=== PATIENT | male | born 1960 | race Caucasian/White ===

== ENCOUNTER 2018-06-10 14:14 | Emergency (ER) | payer OTHER ==
[2018-06-10] MEDS ORDERED: LIDOCAINE HCL MPF 1% 5ML VIAL ONE (14:53)
== END 2018-06-10 16:31 | disposition home or self-care (01) ==
LOC: EDH 14:14
DX: S62.632B Displaced fracture of distal phalanx of right middle finger, initial encounter for open fracture (principal); I10 Essential (primary) hypertension; M10.9 Gout, unspecified; Z98.890 Other specified postprocedural states; X58.XXXA Exposure to other specified factors, initial encounter; Y93.89 Activity, other specified; Y92.89 Other specified places as the place of occurrence of the external cause; Y99.8 Other external cause status
CPT/HCPCS: 12042; 73140; 99284; J3490

== ENCOUNTER 2018-06-14 13:56 | Emergency (ER) | payer OTHER | END 2018-06-14 16:12 | disposition home or self-care (01) | LOC: EDH 13:56 | DX: S61.212D Laceration without foreign body of right middle finger without damage to nail, subsequent encounter (principal); L08.9 Local infection of the skin and subcutaneous tissue, unspecified; I10 Essential (primary) hypertension; Z87.891 Personal history of nicotine dependence; X58.XXXD Exposure to other specified factors, subsequent encounter ==

== ENCOUNTER → 2018-08-17 | Outpatient (CLI) | payer OTHER ==
[~2018-08-17] MED LIST: ALLO300T2 PO; AMLO10TA7 PO; ASPI-555 PO; ICOS1CAP PO; METO-391 PO; TAMS0.4C32 PO
== END | disposition home or self-care (01) ==
LOC: SHCH 13:51
PROVIDERS: ATTEND Internal Medicine Cardiovascular Disease
DX: I10 Essential (primary) hypertension (principal); E78.5 Hyperlipidemia, unspecified
CPT/HCPCS: 93306

== ENCOUNTER → 2018-08-21 | Outpatient (CLI) | payer OTHER ==
[~2018-08-21] VITALS: Ht 175.3 cm; Wt 93.4 kg
[~2018-08-21] MED LIST changes: -ALLO300T2 PO; -AMLO10TA7 PO; -ASPI-555 PO; -ICOS1CAP PO; -METO-391 PO; +REGADENOSON 0.4 MG/5 ML PF SYG IVP SCH; -TAMS0.4C32 PO
== END | disposition home or self-care (01) ==
LOC: SHCH 07:47
PROVIDERS: ATTEND Internal Medicine Cardiovascular Disease
DX: R07.9 Chest pain, unspecified (principal); E78.5 Hyperlipidemia, unspecified; I25.9 Chronic ischemic heart disease, unspecified
CPT/HCPCS: 78452; 93017; 96374; A9500 ×2; J2785

== ENCOUNTER 2018-09-10 05:47 | Observation (INO) | payer OTHER ==
[2018-09-08 16:03] LABS: BASOPHILS % (AUTO) 0.8 % (0.0-5.0); EOSINOPHILS % (AUTO) 1.8 % (0.0-8.0); HEMATOCRIT 41.3 % (42-54); LYMPHOCYTES % (AUTO) 24.7 % (21.0-51.0); MEAN CORPUSCULAR HEMOGLOBIN 28.1 pg (27.0-33.0); MEAN CORPUSCULAR HGB CONC 33.7 g/dL (32.0-36.0); MEAN CORPUSCULAR VOLUME 83.6 fL (79-99); MONOCYTES % (AUTO) 9.1 % (3.0-13.0); NEUTROPHILS % (AUTO) 63.6 % (40.0-77.0); NUCLEATED RED BLOOD CELLS 0.1 % (0.0-0.19); PLATELET COUNT (AUTO) 235 K/uL (130-400); RED BLOOD CELL COUNT(AUTO) 4.94 MIL/uL (4.50-6.20); RED CELL DISTRIBUTION WIDTH 13.7 % (11.0-15.5); WHITE BLOOD COUNT (AUTO) 7.6 K/uL (4.8-10.8)
[2018-09-08 16:04] LABS: APPEARANCE,URINE Clear (CLEAR); BILIRUBIN,URINE Negative (NEGATIVE); COLOR,URINE Yellow (YELLOW); GLUCOSE, URINE (UA) Negative (NEGATIVE); KETONES,URINE Negative (NEGATIVE); LEUKOCYTE ESTERASE ,URINE Negative (NEGATIVE); NITRATE,URINE Negative (NEGATIVE); OCCULT BLOOD,URINE Negative (NEGATIVE); PROTEIN,URINE Negative (NEGATIVE); UROBILINOGEN,URINE 0.2 mg/dL (0.2-1.0)
[2018-09-08 16:08] VITALS: BP 144/89
[2018-09-08 16:14] LABS: POTASSIUM 3.4 mmol/L (3.5-5.1)
[2018-09-08 16:15] LABS: INR 0.92 (0.85-1.15); PROTHROMBIN TIME 9.7 SEC (9.6-11.6)
--- NOTE | 2018-09-09 12:18 | NUR ---
ABNORMAL LABS REPORTED ABNORMAL LABS TO KANIKA MCCLURE. POTASSIUM 3.4. ORDERS TO REDRAW POTASSIUM IN THE MORNING.
[2018-09-10] VITALS (19 sets, daily range): BP systolic 118–144; BP diastolic 70–97
[~2018-09-10] VITALS: Ht 177.8 cm; Wt 94.6 kg
[~2018-09-10 05:47] MED LIST changes: +ALLO300T2 PO; +AMLO10TA7 PO; +ASPI-555 PO; +ICOS1CAP PO; +METO-391 PO; -REGADENOSON 0.4 MG/5 ML PF SYG IVP SCH; +TAMS0.4C32 PO
[2018-09-10] MEDS: SODIUM CHLORIDE 0.9% 1000ML 1,000 ML IV SCH ×2 (07:12→14:50)
[2018-09-10] MEDS ORDERED: IOHEXOL-350 50ML VIAL IV ONE (08:19)
[2018-09-10] MEDS ORDERED: HEPARIN SODIUM 1000UNIT/ML 10ML VIAL ONE (08:19)
[2018-09-10] MEDS ORDERED: IOHEXOL 350 MG/ML 100ML INFUS..BTL IV ONE (08:19)
[2018-09-10] MEDS ORDERED: LIDOCAINE HCL 2% 20ML ONE (08:20)
[2018-09-10] MEDS ORDERED: CLOPIDOGREL BISULFATE 300 MG TAB ONE (09:18)
[2018-09-10] MEDS ORDERED: ONDANSETRON HCL 4 MG/2 ML VIAL IVP SCH (09:30)
[2018-09-10] MEDS ORDERED: ONDANSETRON HCL 4 MG/2 ML VIAL IVP PRN (09:30)
[2018-09-10] MEDS ORDERED: MORPHINE SULFATE 5 MG/ML VIAL IVP SCH (09:30)
[2018-09-10] MEDS ORDERED: ATROPINE SULFATE 0.1 MG/ML 10 ML SYG IVP ONE (13:54)
[2018-09-10] MEDS ORDERED: MORPHINE SULFATE 5 MG/ML VIAL ONE (13:56)
--- NOTE | 2018-09-10 15:00 | NUR ---
REPORT GIVEN TO SRAVANTHI TRAYLOR
[2018-09-10] MEDS ORDERED: ATORVASTATIN CALCIUM 10 MG TABLET PO SCH (21:00)
[2018-09-10] MEDS ORDERED: ALLOPURINOL 300 MG TABLET PO SCH (21:00)
[2018-09-10] MEDS ORDERED: TAMSULOSIN HCL 0.4 MG CAP.ER.24H PO SCH (21:00)
[2018-09-10] MEDS: METOPROLOL TARTRATE 25 MG TAB PO SCH (21:36)
[2018-09-10] MEDS: AMLODIPINE BESYLATE 5 MG TAB PO SCH (21:36)
[2018-09-11] MEDS ORDERED: ACETAMINOPHEN 325 MG TAB ONE (03:35)
[2018-09-11 03:44] VITALS: BP 118/87
[2018-09-11 07:30] VITALS: BP 133/79
--- NOTE | 2018-09-11 07:30 | NUR ---
received report assessment completed aaox4 status post stent, denies discomfort, tele sr, call light in reach , rt groin no hematoma, pulses palpable +2
--- NOTE | 2018-09-11 08:30 | NUR ---
dr mccloud in to see pt , discussed plan of care, for discharge today
[2018-09-11] MEDS: AMLODIPINE BESYLATE 5 MG TAB PO SCH (08:39)
[2018-09-11] MEDS: METOPROLOL TARTRATE 25 MG TAB PO SCH (08:42)
[2018-09-11] MEDS ORDERED: CLOPIDOGREL BISULFATE 75 MG TAB PO SCH (09:00)
[2018-09-11] MEDS ORDERED: **HM** VASCEPA 2GM PO SCH (09:00)
[2018-09-11] MEDS ORDERED: ASPIRIN 81MG TAB.CHEW PO SCH (09:00)
[2018-09-11 11:00] VITALS: BP 137/82
--- NOTE | 2018-09-11 12:30 | NUR ---
dr fleming in to see pt, ok to discharge
--- NOTE | 2018-09-11 13:00 | NUR ---
written and verbal discharge instructions given, reviewed new med plavix indication and side effects, appointment with dr mccloud, on oct 05 , teach back, saline lock and tele moises removed, dischared via w/c accompanied by
== END 2018-09-11 13:10 | disposition home or self-care (01) ==
LOC: DAH 05:47 → DAHIP 05:48 → DAH 05:48 → 4CH 17:19
PROVIDERS: ADMIT Internal Medicine; ATTEND Internal Medicine
DX: I25.119 Atherosclerotic heart disease of native coronary artery with unspecified angina pectoris (principal); E66.9 Obesity, unspecified; E78.00 Pure hypercholesterolemia, unspecified; E79.0 Hyperuricemia without signs of inflammatory arthritis and tophaceous disease; I25.82 Chronic total occlusion of coronary artery; E78.5 Hyperlipidemia, unspecified; I11.9 Hypertensive heart disease without heart failure; N40.0 Benign prostatic hyperplasia without lower urinary tract symptoms; Z79.82 Long term (current) use of aspirin; Z79.01 Long term (current) use of anticoagulants
CPT/HCPCS: 36415 ×2; 71045; 80048; 81003; 84132; 85025; 85610; 85730 ×3; 93005; 93458; 96374; A4606; C1769; C1874; C1887; C1894; C9600; G0378 ×31; J1644 ×2; J2270; J2405; J3490; J7030; Q9965 ×2; Q9967 ×2; J0461

== ENCOUNTER → 2019-08-04 | Outpatient (CLI) | payer OTHER | END | disposition home or self-care (01) | LOC: RAH 10:37 | PROVIDERS: ATTEND Family Medicine | DX: R47.81 Slurred speech (principal) | CPT/HCPCS: 70544; 70551 ==

== ENCOUNTER 2021-03-24 15:46 | Observation (INO) | payer OTHER ==
[~2021-03-24] VITALS: Ht 172.7 cm; Wt 97.5 kg
[2021-03-24] VITALS (10 sets, daily range): BP systolic 106–161; BP diastolic 68–90
[~2021-03-24 15:46] MED LIST changes: +AMLO-258 PO; -AMLO10TA7 PO; -ASPI-555 PO; +ASPI-556 PO
[2021-03-24 16:17] LABS: BASOPHILS % (AUTO) 0.5 % (0.0-5.0); EOSINOPHILS % (AUTO) 0.3 % (0.0-8.0); HEMATOCRIT 39.2 % (42-54); LYMPHOCYTES % (AUTO) 17.6 % (21.0-51.0); MEAN CORPUSCULAR HEMOGLOBIN 28.6 pg (27.0-33.0); MEAN CORPUSCULAR HGB CONC 34.7 g/dL (32.0-36.0); MEAN CORPUSCULAR VOLUME 82.5 fL (79-99); PLATELET COUNT (AUTO) 262 K/uL (130-400); RED BLOOD CELL COUNT(AUTO) 4.75 MIL/uL (4.50-6.20); RED CELL DISTRIBUTION WIDTH 13.2 % (11.0-15.5); WHITE BLOOD COUNT (AUTO) 11.3 K/uL (4.8-10.8)
[2021-03-24 16:28] LABS: CREATININE 2.1 mg/dL (0.5-1.5); POTASSIUM 3.8 mmol/L (3.5-5.1)
[2021-03-24 16:31] LABS: APPEARANCE,URINE Cloudy (CLEAR); BILIRUBIN,URINE Small (NEGATIVE); COLOR,URINE Dark Yellow (YELLOW); GLUCOSE, URINE (UA) Negative (NEGATIVE); KETONES,URINE 15 mg/dL (NEGATIVE); LEUKOCYTE ESTERASE ,URINE Trace (NEGATIVE); NITRATE,URINE Negative (NEGATIVE); OCCULT BLOOD,URINE Negative (NEGATIVE); PROTEIN,URINE POS 1+ mg/dL (NEGATIVE)
[2021-03-24 16:32] LABS: ALBUMIN 4.2 g/dL (3.5-5.0); BILIRUBIN,TOTAL 0.4 mg/dL (0.2-1.0); TOTAL PROTEIN, SERUM 7.5 g/dL (6.0-8.3)
[2021-03-24 16:48] LABS: BACTERIA,URINE Rare /HPF (None Seen); MUCUS,URINE Rare LPF (None Seen); SQUAMOUS EPITHELIAL CELL,UR 0-2 /HPF (0-2); WBC,URINE 0-1 /HPF (0-1)
[2021-03-24] MEDS ORDERED: 0.9%NACL 1000ML 1,000 ML IV ONE (19:00)
[2021-03-24] MEDS ORDERED: METOPROLOL TARTRATE 25 MG TAB PO ONE (21:30)
[2021-03-24] MEDS ORDERED: LACTULOSE 20 GM/30 ML UDCUP PO PRN (21:30)
[2021-03-24] MEDS ORDERED: HYDRALAZINE 20MG/ML VIAL IV PRN (21:30)
[2021-03-24] MEDS ORDERED: HYDROCODONE/ACETAMINOPHEN 5/325 MG TAB PO PRN (21:30)
[2021-03-24] MEDS ORDERED: GUAIFENESIN-DM 200/20 MG 10 ML PO PRN (21:30)
[2021-03-24] MEDS ORDERED: NITROGLYCERIN 0.4 MG SL TAB SL PRN (21:30)
[2021-03-24] MEDS ORDERED: ACETAMINOPHEN 325 MG TAB PO PRN ×2 (21:30)
[2021-03-24] MEDS ORDERED: MAG/ALUM/SIMETH 30 ML UDCUP PO PRN (21:30)
[2021-03-24] MEDS ORDERED: ONDANSETRON 4MG INJ IV PRN (21:30)
[2021-03-24] MEDS ORDERED: DIPHENHYDRAMINE HCL 25 MG CAPSULE PO PRN (21:30)
[2021-03-24] MEDS: 0.9%NACL 1000ML 1,000 ML IV SCH (22:19)
[2021-03-24 22:46] LABS: CREATINE KINASE, TOTAL 135 U/L (21-232); MYOGLOBIN 74 ng/mL (10-92); TROPONIN I < 0.04 ng/mL (0.00-0.06)
[2021-03-25] VITALS (9 sets, daily range): BP systolic 121–149; BP diastolic 70–87
[2021-03-25 04:41] LABS: BASOPHILS % (AUTO) 0.7 % (0.0-5.0); EOSINOPHILS % (AUTO) 1.5 % (0.0-8.0); HEMATOCRIT 36.3 % (42-54); LYMPHOCYTES % (AUTO) 38.6 % (21.0-51.0); MEAN CORPUSCULAR HEMOGLOBIN 28.4 pg (27.0-33.0); MEAN CORPUSCULAR HGB CONC 33.6 g/dL (32.0-36.0); MEAN CORPUSCULAR VOLUME 84.4 fL (79-99); MONOCYTES % (AUTO) 7.4 % (3.0-13.0); NEUTROPHILS % (AUTO) 51.5 % (40.0-77.0); PLATELET COUNT (AUTO) 241 K/uL (130-400); RED CELL DISTRIBUTION WIDTH 13.4 % (11.0-15.5); WHITE BLOOD COUNT (AUTO) 9.1 K/uL (4.8-10.8)
[2021-03-25 04:49] LABS: HEMOGLOBIN A1C 5.8 % (4.0-6.0)
[2021-03-25 05:00] LABS: B-TYPE NATRIURETIC PEPTIDE < 5 pg/mL (0-100)
[2021-03-25 05:03] LABS: CARBON DIOXIDE 28 mmol/L (21-32); CHLORIDE 109 mmol/L (101-111); CREATINE KINASE, TOTAL 126 U/L (21-232); CREATININE 1.3 mg/dL (0.5-1.5); GLOMERULAR FILTR. RATE CALC 59 mL/min (>60); GLUCOSE,RANDOM 89 mg/dL (70-105); MYOGLOBIN 61 ng/mL (10-92); POTASSIUM 3.7 mmol/L (3.5-5.1); SODIUM SERUM 144 mmol/L (136-145); TROPONIN I < 0.04 ng/mL (0.00-0.06); UREA NITROGEN, BLOOD 20 mg/dL (7-18)
[2021-03-25] MEDS: 0.9%NACL 1000ML 1,000 ML IV SCH ×2 (06:38→17:30)
[2021-03-25] MEDS: ASPIRIN 81 MG EC TAB PO SCH (08:46)
[2021-03-25] MEDS: VASCEPA 2 GM PO SCH ×2 (08:47→20:18)
[2021-03-25] MEDS: FAMOTIDINE 20MG TAB PO SCH ×2 (08:47→20:13)
[2021-03-25] MEDS ORDERED: CEFTRIAXONE 1G VIAL IVP SCH (09:00)
[2021-03-25 13:17] LABS: CREATINE KINASE, TOTAL 130 U/L (21-232); MYOGLOBIN 46 ng/mL (10-92); TROPONIN I < 0.04 ng/mL (0.00-0.06)
[2021-03-25] MEDS ORDERED: TAMSULOSIN HCL 0.4 MG CAP.ER.24H PO SCH (21:00)
[2021-03-25] MEDS ORDERED: ALLOPURINOL 300 MG TABLET PO SCH (21:00)
[2021-03-26 04:05] VITALS: BP 133/79
[2021-03-26 04:10] VITALS: BP 120/84
[2021-03-26 04:15] VITALS: BP 108/75
[2021-03-26 04:17] LABS: HEMATOCRIT 37.2 % (42-54); MEAN CORPUSCULAR HEMOGLOBIN 28.5 pg (27.0-33.0); MEAN CORPUSCULAR HGB CONC 34.1 g/dL (32.0-36.0); MEAN CORPUSCULAR VOLUME 83.4 fL (79-99); RED BLOOD CELL COUNT(AUTO) 4.46 MIL/uL (4.50-6.20); RED CELL DISTRIBUTION WIDTH 13.2 % (11.0-15.5); WHITE BLOOD COUNT (AUTO) 8.5 K/uL (4.8-10.8)
[2021-03-26 04:24] LABS: CREATININE 1.2 mg/dL (0.5-1.5); MAGNESIUM 1.9 mg/dL (1.80-2.40); POTASSIUM 3.7 mmol/L (3.5-5.1)
[2021-03-26 08:00] VITALS: BP 156/92
[2021-03-26] MEDS: ASPIRIN 81 MG EC TAB PO SCH (08:51)
[2021-03-26] MEDS: FAMOTIDINE 20MG TAB PO SCH (08:51)
[2021-03-26] MEDS: VASCEPA 2 GM PO SCH (08:52)
[2021-03-26 12:00] VITALS: BP 134/77
[2021-03-26] MEDS: 0.9%NACL 1000ML 1,000 ML IV SCH (13:30)
[2021-03-26] MEDS ORDERED: METO-408 PO (14:51)
[2021-03-26 14:53] VITALS: BP 138/82
== END 2021-03-26 16:45 | disposition home or self-care (01) ==
LOC: EDH 15:46 → EDHIP 21:09 → 3BH 21:57
PROVIDERS: ADMIT Internal Medicine; ATTEND Internal Medicine
DX: I95.1 Orthostatic hypotension (principal); N39.0 Urinary tract infection, site not specified; E86.0 Dehydration; I10 Essential (primary) hypertension; E78.5 Hyperlipidemia, unspecified; E78.00 Pure hypercholesterolemia, unspecified; H93.19 Tinnitus, unspecified ear; I25.10 Atherosclerotic heart disease of native coronary artery without angina pectoris; R42 Dizziness and giddiness; Z79.899 Other long term (current) drug therapy; Z98.890 Other specified postprocedural states; Z79.82 Long term (current) use of aspirin; Z68.32 Body mass index [BMI] 32.0-32.9, adult; Z95.5 Presence of coronary angioplasty implant and graft; Z87.891 Personal history of nicotine dependence; Z95.1 Presence of aortocoronary bypass graft
CPT/HCPCS: 36415 ×3; 70450; 70547; 70551; 80048 ×2; 80053; 81001; 82550 ×3; 83036; 83690; 83735; 83874 ×3; 83880; 84484 ×3; 85025 ×2; 85027; 93005 ×4; 93306; 93356; 93880; 96361 ×2; 96374; 97039 ×2; 97116; 97161; 99285; G0378 ×42; G8978; G8979; G8980 ×2; G8981; G8982; G8983 ×2; J0696

== ENCOUNTER → 2022-06-25 | Outpatient (CLI) | payer OTHER ==
[~2022-06-25] MED LIST changes: -AMLO-258 PO; -METO-391 PO; +METO-408 PO
== END | disposition home or self-care (01) ==
LOC: RAH 10:00
PROVIDERS: ATTEND Family Medicine
DX: E04.9 Nontoxic goiter, unspecified (principal)
CPT/HCPCS: 76536

== ENCOUNTER 2022-12-01 03:47 | Emergency (ER) | payer OTHER ==
[~2022-12-01] VITALS: Ht 175.3 cm; Wt 92.5 kg
[2022-12-01] MEDS ORDERED: ACET-2079 PO (08:45)
[2022-12-01] MEDS ORDERED: IBUP-2070 PO (08:45)
[2022-12-01] MEDS ORDERED: KETOROLAC 60 MG VIAL (30MG/ML) IM ONE (09:00)
[2022-12-01] MEDS ORDERED: HYDROCODONE/ACETAMINOPHEN 5/325 MG TAB PO ONE (09:00)
[2022-12-01 09:11] VITALS: BP 133/86
== END 2022-12-01 09:10 | disposition home or self-care (01) ==
LOC: EDH 03:47
DX: S80.212A Abrasion, left knee, initial encounter (principal); M25.562 Pain in left knee; I10 Essential (primary) hypertension; F02.80 Dementia in other diseases classified elsewhere, unspecified severity, without behavioral disturbance, psychotic disturbance, mood disturbance, and anxiety; G30.9 Alzheimer's disease, unspecified; F17.200 Nicotine dependence, unspecified, uncomplicated; Z79.899 Other long term (current) drug therapy; Z79.82 Long term (current) use of aspirin; Z88.8 Allergy status to other drugs, medicaments and biological substances; X58.XXXA Exposure to other specified factors, initial encounter; Y93.89 Activity, other specified; Y92.89 Other specified places as the place of occurrence of the external cause; Y99.8 Other external cause status
CPT/HCPCS: 99284; 73562; 96372; J1885

== ENCOUNTER 2023-01-18 19:42 | Emergency (ER) | payer OTHER ==
[~2023-01-18 19:42] MED LIST changes: +ACET-2079 PO; +IBUP-2070 PO
[2023-01-18 21:24] VITALS: BP 144/53
[2023-01-18] MEDS ORDERED: LIDOCAINE HCL 1% 20 ML VIAL ONE (21:31)
[2023-01-18] MEDS ORDERED: IBUPROFEN 800 MG TAB PO ONE (23:00)
[2023-01-18] MEDS ORDERED: IBUP-1493 PO (23:07)
== END 2023-01-18 23:35 | disposition home or self-care (01) ==
LOC: EDH 19:42
DX: M25.462 Effusion, left knee (principal); M25.562 Pain in left knee; I10 Essential (primary) hypertension; F17.200 Nicotine dependence, unspecified, uncomplicated; Z79.82 Long term (current) use of aspirin; Z79.899 Other long term (current) drug therapy; Z98.890 Other specified postprocedural states
CPT/HCPCS: 20610; 73564; 84560; 87071; 87205

== ENCOUNTER 2023-02-13 23:08 | Emergency (ER) | payer OTHER ==
[~2023-02-13] VITALS: Ht 172.7 cm; Wt 89.8 kg
[~2023-02-13 23:08] MED LIST changes: +IBUP-1493 PO
[2023-02-13] MEDS ORDERED: ACETAMINOPHEN 500 MG TABLET PO ONE (23:30)
[2023-02-13 23:43] LABS: BASOPHILS % (AUTO) 0.4 % (0.0-5.0); HEMATOCRIT 43.9 % (42-54); LYMPHOCYTES % (AUTO) 11.4 % (21.0-51.0); MEAN CORPUSCULAR HEMOGLOBIN 27.4 pg (27.0-33.0); MEAN CORPUSCULAR HGB CONC 33.3 g/dL (32.0-36.0); MEAN CORPUSCULAR VOLUME 82.5 fL (79-99); MONOCYTES % (AUTO) 11.2 % (3.0-13.0); NEUTROPHILS % (AUTO) 76.6 % (40.0-77.0); PLATELET COUNT (AUTO) 259 K/uL (130-400); RED BLOOD CELL COUNT(AUTO) 5.32 MIL/uL (4.50-6.20); WHITE BLOOD COUNT (AUTO) 13.5 K/uL (4.8-10.8)
[2023-02-13 23:50] LABS: APPEARANCE,URINE CLEAR (CLEAR); BILIRUBIN,URINE NEGATIVE (NEGATIVE); COLOR,URINE YELLOW (YELLOW); GLUCOSE, URINE (UA) NEGATIVE (NEGATIVE); KETONES,URINE NEGATIVE (NEGATIVE); LEUKOCYTE ESTERASE ,URINE NEGATIVE Leu/uL (NEGATIVE); NITRATE,URINE NEGATIVE (NEGATIVE); OCCULT BLOOD,URINE NEGATIVE (NEGATIVE); PH,URINE 5.5 (5.0-8.0); PROTEIN,URINE 20 mg/dL (NEGATIVE); UROBILINOGEN,URINE 0.2 mg/dL (0.2-1.0)
[2023-02-14 00:15] LABS: CREATININE 1.4 mg/dL (0.5-1.5); POTASSIUM 3.6 mmol/L (3.5-5.1)
[2023-02-14 00:20] LABS: ALBUMIN 4.1 g/dL (3.5-5.0); TOTAL PROTEIN, SERUM 8.3 g/dL (6.0-8.3)
[2023-02-14] MEDS ORDERED: LIDOCAINE HCL 2% VISCOUS 15 ML UDCUP ONE (01:58)
[2023-02-14] MEDS ORDERED: MAG/ALUM/SIMETH 30 ML UDCUP ONE (01:58)
[2023-02-14] MEDS ORDERED: IOHEXOL 350 MG/ML 100ML INFUS..BTL IV ONE (02:13)
[2023-02-14] MEDS ORDERED: MAG/ALUM/SIMETH 30 ML UDCUP PO ONE (02:30)
[2023-02-14] MEDS ORDERED: LIDOCAINE HCL 2% VISCOUS 15 ML UDCUP PO ONE (02:30)
[2023-02-14] MEDS ORDERED: NIRM1TAB PO (03:29)
[2023-02-14] MEDS ORDERED: IBUP-1493 PO (03:29)
[2023-02-14] MEDS ORDERED: ONDA-104 PO (03:30)
[2023-02-14 03:37] VITALS: BP 125/68
== END 2023-02-14 03:49 | disposition home or self-care (01) ==
LOC: EDH 23:08
DX: U07.1 COVID-19 (principal); I10 Essential (primary) hypertension; F17.200 Nicotine dependence, unspecified, uncomplicated; Z79.82 Long term (current) use of aspirin; Z79.899 Other long term (current) drug therapy; Z88.8 Allergy status to other drugs, medicaments and biological substances; Z98.890 Other specified postprocedural states
CPT/HCPCS: 99285; 71045; 87635; 80053; 85025; 87880; 87804 ×2; 83605 ×2; 81003; 36415 ×2; 71275; C9803; Q9967

== ENCOUNTER 2023-09-15 02:06 | Observation (INO) | payer OTHER ==
[~2023-09-15] VITALS: Ht 167.6 cm; Wt 93.9 kg
[2023-09-15] VITALS (8 sets, daily range): BP systolic 141–157; BP diastolic 75–82; PULSE 54–63; RESP 16–19; O2SAT 96–100
[~2023-09-15 02:06] MED LIST changes: +NIRM1TAB PO; +ONDA-104 PO
[2023-09-15 02:19] LABS: BASOPHILS # (AUTO) 0.05 K/uL (0.00-0.20); BASOPHILS % (AUTO) 0.3 % (0.0-5.0); EOSINOPHILS # (AUTO) 0.07 K/uL (0.00-0.70); EOSINOPHILS % (AUTO) 0.4 % (0.0-8.0); HEMATOCRIT 42.4 % (42-54); IMMATURE GRANULOCYTE ABSOLUTE 0.08 K/uL (0-1); LYMPHOCYTES # (AUTO) 2.6 K/uL (1.0-4.8); LYMPHOCYTES % (AUTO) 16.1 % (21.0-51.0); MEAN CORPUSCULAR HEMOGLOBIN 28.9 pg (27.0-33.0); MEAN CORPUSCULAR HGB CONC 34.4 g/dL (32.0-36.0); MEAN CORPUSCULAR VOLUME 83.8 fL (79-99); MONOCYTES # (AUTO) 0.8 K/uL (0.1-1.0); MONOCYTES % (AUTO) 4.7 % (3.0-13.0); NEUTROPHILS # (AUTO) 12.5 K/uL (1.8-7.7); PLATELET COUNT (AUTO) 241 K/uL (130-400); RED BLOOD CELL COUNT(AUTO) 5.06 MIL/uL (4.50-6.20); RED CELL DISTRIBUTION WIDTH 13.4 % (11.0-15.5); WHITE BLOOD COUNT (AUTO) 16.1 K/uL (4.8-10.8)
[2023-09-15 02:51] LABS: CREATININE 1.1 mg/dL (0.5-1.5); POTASSIUM 3.4 mmol/L (3.5-5.1)
[2023-09-15 02:55] LABS: ALBUMIN 3.9 g/dL (3.5-5.0); BILIRUBIN,TOTAL 0.2 mg/dL (0.2-1.0); TOTAL PROTEIN, SERUM 7.2 g/dL (6.0-8.3)
[2023-09-15 02:56] LABS: B-TYPE NATRIURETIC PEPTIDE 15 pg/mL (0-100)
[2023-09-15] MEDS ORDERED: ENOXAPARIN SODIUM 100 MG/1 ML SQ ONE (03:00)
[2023-09-15] MEDS ORDERED: ASPIRIN 325MG TAB PO ONE ×2 (03:00→05:30)
[2023-09-15] MEDS ORDERED: NITROGLYCERIN 1GM OINT 1 INCH/1GM TD ONE (03:00)
[2023-09-15 03:10] LABS: SARS-CoV-2, RNA, NAAT NEGATIVE SARS CoV-2 (NEGATIVE)
[2023-09-15 03:14] LABS: INFLUENZA TYPE A Negative For Type A (NEGATIVE); INFLUENZA TYPE B Negative For Type B (NEGATIVE)
[2023-09-15] MEDS ORDERED: MORPHINE 2 MG SYG IVP PRN (05:30)
[2023-09-15] MEDS ORDERED: ACETAMINOPHEN 325 MG TAB PO PRN (05:30)
[2023-09-15] MEDS: NITROGLYCERIN 1GM OINT 1 INCH/1GM TD SCH ×3 (05:30→20:13)
[2023-09-15] MEDS ORDERED: ONDANSETRON 4MG INJ IVP PRN (05:30)
[2023-09-15] MEDS ORDERED: HYDRALAZINE 20MG/ML VIAL IV PRN (05:30)
[2023-09-15] MEDS ORDERED: TEMAZEPAM 15 MG CAPSULE PO PRN (05:30)
[2023-09-15] MEDS ORDERED: CLONIDINE HCL 0.1 MG TABLET PO PRN (05:30)
[2023-09-15] MEDS ORDERED: ACETAMINOPHEN 650 MG SUPPOSITORY RC PRN (05:30)
[2023-09-15 05:59] LABS: APPEARANCE,URINE CLEAR (CLEAR); BILIRUBIN,URINE NEGATIVE (NEGATIVE); COLOR,URINE YELLOW (YELLOW); GLUCOSE, URINE (UA) NEGATIVE (NEGATIVE); KETONES,URINE NEGATIVE (NEGATIVE); LEUKOCYTE ESTERASE ,URINE NEGATIVE Leu/uL (NEGATIVE); NITRATE,URINE NEGATIVE (NEGATIVE); OCCULT BLOOD,URINE NEGATIVE (NEGATIVE); PH,URINE 5.5 (5.0-8.0); PROTEIN,URINE NEGATIVE (NEGATIVE); UROBILINOGEN,URINE 0.2 mg/dL (0.2-1.0)
[2023-09-15 06:04] LABS: ADD UA MICROSCOPIC NO
[2023-09-15] MEDS: INSULIN HUMULIN R 100 UNIT/ML 3ML SQ SCH ×4 (06:48→20:17)
[2023-09-15] MEDS ORDERED: METOPROLOL SUCCINATE 25 MG TAB.SR.24H PO SCH (09:00)
[2023-09-15] MEDS ORDERED: PHARMACY COMMUNICATION MISC SCH (09:00)
[2023-09-15] MEDS: PANTOPRAZOLE 40 MG TAB DR PO SCH (09:18)
[2023-09-15] MEDS: ASPIRIN 81MG CHEW TAB PO SCH (09:18)
[2023-09-15] MEDS: ENOXAPARIN SODIUM 30 MG/0.3 ML SQ SCH (09:25)
[2023-09-15 11:31] LABS: BASOPHILS # (AUTO) 0.04 K/uL (0.00-0.20); BASOPHILS % (AUTO) 0.3 % (0.0-5.0); EOSINOPHILS # (AUTO) 0.12 K/uL (0.00-0.70); EOSINOPHILS % (AUTO) 0.8 % (0.0-8.0); HEMATOCRIT 39.3 % (42-54); LYMPHOCYTES # (AUTO) 2.2 K/uL (1.0-4.8); LYMPHOCYTES % (AUTO) 13.5 % (21.0-51.0); MEAN CORPUSCULAR HEMOGLOBIN 28.7 pg (27.0-33.0); MEAN CORPUSCULAR HGB CONC 34.4 g/dL (32.0-36.0); MEAN CORPUSCULAR VOLUME 83.6 fL (79-99); MONOCYTES # (AUTO) 0.9 K/uL (0.1-1.0); MONOCYTES % (AUTO) 5.9 % (3.0-13.0); NEUTROPHILS # (AUTO) 12.5 K/uL (1.8-7.7); NEUTROPHILS % (AUTO) 78.9 % (40.0-77.0); PLATELET COUNT (AUTO) 246 K/uL (130-400); RED CELL DISTRIBUTION WIDTH 13.4 % (11.0-15.5); WHITE BLOOD COUNT (AUTO) 15.9 K/uL (4.8-10.8)
[2023-09-15 11:36] LABS: POTASSIUM 3.9 mmol/L (3.5-5.1)
[2023-09-15] MEDS ORDERED: KCL 20 MEQ ERTAB PO PRN (16:00)
[2023-09-15] MEDS ORDERED: POTASSIUM CHLORIDE 20MEQ/100ML 100 ML IV PRN (16:00)
[2023-09-15] MEDS ORDERED: METOPROLOL TARTRATE 50 MG TAB PO ONE (17:30)
[2023-09-15] MEDS ORDERED: AMLODIPINE 5 MG TAB PO ONE (17:30)
[2023-09-15] MEDS: MEMANTINE HCL 5 MG TABLET PO SCH (20:15)
[2023-09-15] MEDS ORDERED: SIMVASTATIN 20 MG TABLET PO SCH (21:00)
[2023-09-16] VITALS (7 sets, daily range): BP systolic 131–168; BP diastolic 68–87; PULSE 54–70; RESP 17–19; O2SAT 97–98
[2023-09-16] MEDS: NITROGLYCERIN 1GM OINT 1 INCH/1GM TD SCH ×3 (04:25→19:43)
[2023-09-16 05:34] LABS: BASOPHILS # (AUTO) 0.03 K/uL (0.00-0.20); BASOPHILS % (AUTO) 0.4 % (0.0-5.0); EOSINOPHILS % (AUTO) 1.2 % (0.0-8.0); HEMATOCRIT 39.4 % (42-54); IMMATURE GRANULOCYTE ABSOLUTE 0.03 K/uL (0-1); LYMPHOCYTES # (AUTO) 2.4 K/uL (1.0-4.8); LYMPHOCYTES % (AUTO) 28.3 % (21.0-51.0); MEAN CORPUSCULAR HGB CONC 33.8 g/dL (32.0-36.0); MEAN CORPUSCULAR VOLUME 82.9 fL (79-99); MONOCYTES # (AUTO) 0.7 K/uL (0.1-1.0); NEUTROPHILS # (AUTO) 5.2 K/uL (1.8-7.7); NEUTROPHILS % (AUTO) 61.7 % (40.0-77.0); PLATELET COUNT (AUTO) 235 K/uL (130-400); RED BLOOD CELL COUNT(AUTO) 4.75 MIL/uL (4.50-6.20); RED CELL DISTRIBUTION WIDTH 13.7 % (11.0-15.5); WHITE BLOOD COUNT (AUTO) 8.4 K/uL (4.8-10.8)
[2023-09-16] MEDS: INSULIN HUMULIN R 100 UNIT/ML 3ML SQ SCH ×4 (05:48→19:44)
[2023-09-16 05:51] LABS: ALBUMIN 3.6 g/dL (3.5-5.0); BILIRUBIN,TOTAL 0.4 mg/dL (0.2-1.0); POTASSIUM 3.6 mmol/L (3.5-5.1); TOTAL PROTEIN, SERUM 6.8 g/dL (6.0-8.3)
[2023-09-16] MEDS ORDERED: REGADENOSON 0.4 MG/5 ML PF SYG IVP SCH (07:30)
[2023-09-16] MEDS: ENOXAPARIN SODIUM 30 MG/0.3 ML SQ SCH (08:38)
[2023-09-16] MEDS: ASPIRIN 81MG CHEW TAB PO SCH (08:38)
[2023-09-16] MEDS: DONEPEZIL HCL 5 MG TAB PO SCH (08:38)
[2023-09-16] MEDS: AMLODIPINE 5 MG TAB PO SCH (08:39)
[2023-09-16] MEDS: METOPROLOL TARTRATE 50 MG TAB PO SCH (08:39)
[2023-09-16] MEDS: PANTOPRAZOLE 40 MG TAB DR PO SCH (08:39)
[2023-09-16] MEDS: MEMANTINE HCL 5 MG TABLET PO SCH ×2 (08:39→19:39)
[2023-09-16] MEDS ORDERED: LOSARTAN 50 MG TABLET PO SCH (09:00)
[2023-09-16] MEDS: POTASSIUM CHLORIDE 10% ELIXIR 20 MEQ/15 ML UDCUP PO PRN ×2 (12:38→17:17)
[2023-09-17] VITALS (15 sets, daily range): BP systolic 138–177; BP diastolic 68–88; PULSE 50–63; RESP 17–18; O2SAT 97–98
[2023-09-17 05:13] LABS: BASOPHILS # (AUTO) 0.04 K/uL (0.00-0.20); BASOPHILS % (AUTO) 0.5 % (0.0-5.0); EOSINOPHILS % (AUTO) 1.2 % (0.0-8.0); HEMATOCRIT 39.6 % (42-54); IMMATURE GRANULOCYTE ABSOLUTE 0.04 K/uL (0-1); LYMPHOCYTES # (AUTO) 2.4 K/uL (1.0-4.8); MEAN CORPUSCULAR HEMOGLOBIN 28.2 pg (27.0-33.0); MEAN CORPUSCULAR HGB CONC 33.8 g/dL (32.0-36.0); MEAN CORPUSCULAR VOLUME 83.4 fL (79-99); MONOCYTES # (AUTO) 0.6 K/uL (0.1-1.0); MONOCYTES % (AUTO) 7.5 % (3.0-13.0); NEUTROPHILS # (AUTO) 5.3 K/uL (1.8-7.7); NEUTROPHILS % (AUTO) 62.3 % (40.0-77.0); PLATELET COUNT (AUTO) 242 K/uL (130-400); RED BLOOD CELL COUNT(AUTO) 4.75 MIL/uL (4.50-6.20); RED CELL DISTRIBUTION WIDTH 13.6 % (11.0-15.5); WHITE BLOOD COUNT (AUTO) 8.6 K/uL (4.8-10.8)
[2023-09-17 05:36] LABS: ALBUMIN 3.5 g/dL (3.5-5.0); BILIRUBIN,TOTAL 0.5 mg/dL (0.2-1.0); CREATININE 1.1 mg/dL (0.5-1.5); POTASSIUM 3.7 mmol/L (3.5-5.1); TOTAL PROTEIN, SERUM 6.5 g/dL (6.0-8.3)
[2023-09-17] MEDS: NITROGLYCERIN 1GM OINT 1 INCH/1GM TD SCH ×3 (05:51→20:35)
[2023-09-17] MEDS: INSULIN HUMULIN R 100 UNIT/ML 3ML SQ SCH ×4 (06:33→20:34)
[2023-09-17 08:51] LABS: CHOLESTEROL 239 mg/dL (<200); HDL CHOLESTEROL 52 mg/dL (29-71); LDL DIRECT 138 mg/dL (0-99); TRIGLYCERIDES 228 mg/dL (30-200)
[2023-09-17 09:08] LABS: INR 0.95 (0.85-1.15); PROTHROMBIN TIME 11.1 SEC (9.6-11.6)
[2023-09-17 09:09] LABS: PARTIAL THROMBOPLASTIN TIME 27.7 SEC (26.3-35.5)
[2023-09-17] MEDS: AMLODIPINE 5 MG TAB PO SCH (09:42)
[2023-09-17] MEDS: LOSARTAN 50 MG TABLET PO SCH (09:43)
[2023-09-17] MEDS: MEMANTINE HCL 5 MG TABLET PO SCH ×2 (09:46→20:33)
[2023-09-17] MEDS: DONEPEZIL HCL 5 MG TAB PO SCH (09:46)
[2023-09-17] MEDS: METOPROLOL TARTRATE 50 MG TAB PO SCH (09:53)
[2023-09-17] MEDS: ASPIRIN 81MG CHEW TAB PO SCH (09:56)
[2023-09-17] MEDS: PANTOPRAZOLE 40 MG TAB DR PO SCH (09:59)
[2023-09-17] MEDS: 0.9%NACL 1000ML 1,000 ML IV SCH ×2 (10:00→18:30)
[2023-09-17] MEDS: EZETIMIBE 10 MG TAB PO SCH (10:03)
[2023-09-17] MEDS ORDERED: LIDOCAINE HCL 400MG/20ML VIAL ONE (12:48)
[2023-09-17] MEDS ORDERED: FENTANYL CITRATE PF 50 MCG/1 ML 2ML VIAL ONE (12:49)
[2023-09-17] MEDS ORDERED: IOHEXOL-350 75 ML VIAL IV ONE (12:49)
[2023-09-17] MEDS ORDERED: MIDAZOLAM HCL 1 MG/ML 2ML VIAL ONE (12:49)
[2023-09-17] MEDS ORDERED: IOHEXOL-350 50ML VIAL IV ONE (12:49)
[2023-09-17] MEDS ORDERED: IOHEXOL 350 MG/ML 100ML INFUS..BTL IV ONE (12:49)
[2023-09-17] MEDS ORDERED: HEPARIN 10,000 UNIT/10ML (1,000 UNIT/ML) VIAL ONE (12:49)
[2023-09-18] MEDS: 0.9%NACL 1000ML 1,000 ML IV SCH ×2 (01:44→02:22)
[2023-09-18] MEDS: NITROGLYCERIN 1GM OINT 1 INCH/1GM TD SCH (03:07)
[2023-09-18 03:56] VITALS: BP 139/75; PULSE 62; RESP 18
[2023-09-18] MEDS: INSULIN HUMULIN R 100 UNIT/ML 3ML SQ SCH ×2 (06:09→11:30)
[2023-09-18 06:20] LABS: BASOPHILS # (AUTO) 0.03 K/uL (0.00-0.20); BASOPHILS % (AUTO) 0.3 % (0.0-5.0); EOSINOPHILS # (AUTO) 0.07 K/uL (0.00-0.70); EOSINOPHILS % (AUTO) 0.8 % (0.0-8.0); HEMATOCRIT 39.1 % (42-54); IMMATURE GRANULOCYTE ABSOLUTE 0.03 K/uL (0-1); LYMPHOCYTES % (AUTO) 22.9 % (21.0-51.0); MEAN CORPUSCULAR HEMOGLOBIN 28.7 pg (27.0-33.0); MEAN CORPUSCULAR HGB CONC 34.3 g/dL (32.0-36.0); MEAN CORPUSCULAR VOLUME 83.7 fL (79-99); MONOCYTES # (AUTO) 0.8 K/uL (0.1-1.0); MONOCYTES % (AUTO) 8.6 % (3.0-13.0); NEUTROPHILS # (AUTO) 5.9 K/uL (1.8-7.7); NEUTROPHILS % (AUTO) 67.1 % (40.0-77.0); PLATELET COUNT (AUTO) 226 K/uL (130-400); RED BLOOD CELL COUNT(AUTO) 4.67 MIL/uL (4.50-6.20); RED CELL DISTRIBUTION WIDTH 13.3 % (11.0-15.5); WHITE BLOOD COUNT (AUTO) 8.9 K/uL (4.8-10.8)
[2023-09-18 07:00] LABS: ALBUMIN 3.5 g/dL (3.5-5.0); BILIRUBIN,TOTAL 0.7 mg/dL (0.2-1.0); POTASSIUM 3.9 mmol/L (3.5-5.1); TOTAL PROTEIN, SERUM 6.4 g/dL (6.0-8.3)
[2023-09-18 08:33] VITALS: BP 143/90; PULSE 61; RESP 18
[2023-09-18] MEDS ORDERED: METOPROLOL SUCCINATE 25 MG TAB.SR.24H PO SCH (09:00)
[2023-09-18] MEDS: DONEPEZIL HCL 5 MG TAB PO SCH (10:59)
[2023-09-18] MEDS: AMLODIPINE 5 MG TAB PO SCH (10:59)
[2023-09-18] MEDS: LOSARTAN 50 MG TABLET PO SCH (10:59)
[2023-09-18] MEDS: EZETIMIBE 10 MG TAB PO SCH (10:59)
[2023-09-18] MEDS: MEMANTINE HCL 5 MG TABLET PO SCH (10:59)
[2023-09-18] MEDS: PANTOPRAZOLE 40 MG TAB DR PO SCH (11:00)
[2023-09-18] MEDS: ASPIRIN 81MG CHEW TAB PO SCH (11:01)
[2023-09-18 12:29] VITALS: BP 158/71; PULSE 61; RESP 17
[2023-09-18] MEDS ORDERED: EZET10TA81 PO (14:01)
[2023-09-18] MEDS ORDERED: AMLO5TAB4 PO (14:01)
[2023-09-18] MEDS ORDERED: LOSA-418 PO (14:01)
[2023-09-18] MEDS ORDERED: METO25TA3 PO (14:01)
[2023-09-18] MEDS ORDERED: MEMA5TAB PO (14:44)
[2023-09-18] MEDS ORDERED: DONE5TAB5 PO (14:44)
[2023-09-18 15:44] VITALS: O2SAT 98
[2023-09-18 17:25] VITALS: BP 157/77; PULSE 60; RESP 17
== END 2023-09-18 17:55 | disposition home or self-care (01) ==
LOC: EDH 02:06 → EDHIP 05:15 → 3DH 05:43
PROVIDERS: ADMIT Internal Medicine Critical Care Medicine; ATTEND Internal Medicine Critical Care Medicine
DX: I25.110 Atherosclerotic heart disease of native coronary artery with unstable angina pectoris (principal); Z20.822 Contact with and (suspected) exposure to COVID-19; I10 Essential (primary) hypertension; R00.1 Bradycardia, unspecified; I16.1 Hypertensive emergency; E66.9 Obesity, unspecified; G30.9 Alzheimer's disease, unspecified; F02.80 Dementia in other diseases classified elsewhere, unspecified severity, without behavioral disturbance, psychotic disturbance, mood disturbance, and anxiety; E78.5 Hyperlipidemia, unspecified; N40.0 Benign prostatic hyperplasia without lower urinary tract symptoms; D72.829 Elevated white blood cell count, unspecified; Z79.82 Long term (current) use of aspirin; Z79.899 Other long term (current) drug therapy; Z91.148 Patient's other noncompliance with medication regimen for other reason; Z91.199 Patient's noncompliance with other medical treatment and regimen due to unspecified reason; Z68.32 Body mass index [BMI] 32.0-32.9, adult; Z95.5 Presence of coronary angioplasty implant and graft
CPT/HCPCS: 96372 ×2; 99285; 82550 ×4; 83735 ×4; 84484 ×3; 80053 ×4; 83880 ×2; 85025 ×5; 85378; 87040 ×2; 87804 ×2; 82948 ×14; 81003; 36415 ×4; 87635; 71045; 93017; 78452; 93306; 93356; 93005; 84145; 80061 ×2; 86140; 93458; 85610; 85730; 97161; 97116; 97530 ×2; G0378 ×77; J1650 ×3; A9500 ×2; J2785; C1894 ×2; C1760; Q9965; J3010; J3490; J2250; J1644; Q9967; 80048; 96374; 99156; 99157; G8980-CH; G8983-CH

== ENCOUNTER 2024-01-30 18:08 | Emergency (ER) | payer OTHER, MEDICARE ==
[~2024-01-30] VITALS: Ht 175.3 cm; Wt 88.0 kg
[~2024-01-30 18:08] MED LIST changes: -ACET-2079 PO; -ALLO300T2 PO; +AMLO5TAB4 PO; +DONE5TAB5 PO; +EZET10TA81 PO; -IBUP-1493 PO; -IBUP-2070 PO; -ICOS1CAP PO; +LOSA-418 PO; +MEMA5TAB PO; -METO-408 PO; +METO25TA3 PO; -NIRM1TAB PO; -ONDA-104 PO; -TAMS0.4C32 PO
[2024-01-30] MEDS: ACETAMINOPHEN 500 MG TABLET PO ONE (18:32)
[2024-01-30 18:33] LABS: BASOPHILS # (AUTO) 0.07 K/uL (0.00-0.20); BASOPHILS % (AUTO) 0.7 % (0.0-5.0); EOSINOPHILS # (AUTO) 0.09 K/uL (0.00-0.70); EOSINOPHILS % (AUTO) 0.9 % (0.0-8.0); HEMATOCRIT 40.4 % (42-54); IMMATURE GRANULOCYTE ABSOLUTE 0.03 K/uL (0-1); LYMPHOCYTES # (AUTO) 2.3 K/uL (1.0-4.8); LYMPHOCYTES % (AUTO) 22.2 % (21.0-51.0); MEAN CORPUSCULAR HEMOGLOBIN 28.3 pg (27.0-33.0); MEAN CORPUSCULAR HGB CONC 34.9 g/dL (32.0-36.0); MEAN CORPUSCULAR VOLUME 81.1 fL (79-99); MONOCYTES # (AUTO) 0.7 K/uL (0.1-1.0); MONOCYTES % (AUTO) 6.3 % (3.0-13.0); NEUTROPHILS # (AUTO) 7.2 K/uL (1.8-7.7); NEUTROPHILS % (AUTO) 69.6 % (40.0-77.0); PLATELET COUNT (AUTO) 256 K/uL (130-400); RED BLOOD CELL COUNT(AUTO) 4.98 MIL/uL (4.50-6.20); WHITE BLOOD COUNT (AUTO) 10.4 K/uL (4.8-10.8)
[2024-01-30 18:47] LABS: CREATININE 1.1 mg/dL (0.5-1.3); POTASSIUM 3.7 mmol/L (3.5-5.1)
[2024-01-30] MEDS: 0.9%NACL 1000ML 1,000 ML IV ONE (19:34)
[2024-01-30] MEDS: MECLIZINE HCL 25 MG TABLET PO ONE (19:35)
[2024-01-30] MEDS: SOLU-MEDROL 125MG VIAL IVP ONE (19:35)
[2024-01-30 19:36] LABS: APPEARANCE,URINE CLEAR (CLEAR); BILIRUBIN,URINE NEGATIVE (NEGATIVE); COLOR,URINE LIGHT-YELLOW (YELLOW); GLUCOSE, URINE (UA) NEGATIVE (NEGATIVE); KETONES,URINE NEGATIVE (NEGATIVE); LEUKOCYTE ESTERASE ,URINE NEGATIVE Leu/uL (NEGATIVE); NITRATE,URINE NEGATIVE (NEGATIVE); OCCULT BLOOD,URINE NEGATIVE (NEGATIVE); PROTEIN,URINE NEGATIVE (NEGATIVE); UROBILINOGEN,URINE 0.2 mg/dL (0.2-1.0)
[2024-01-30 19:43] LABS: ADD UA MICROSCOPIC NO
[2024-01-30 19:52] VITALS: BP 140/76; PULSE 58; RESP 16; O2SAT 99
[2024-01-30] MEDS ORDERED: MECL-302 PO (20:21)
== END 2024-01-30 20:40 | disposition home or self-care (01) ==
LOC: EDH 18:08
DX: R42 Dizziness and giddiness (principal); H83.09 Labyrinthitis, unspecified ear; G30.9 Alzheimer's disease, unspecified; F02.80 Dementia in other diseases classified elsewhere, unspecified severity, without behavioral disturbance, psychotic disturbance, mood disturbance, and anxiety; I25.10 Atherosclerotic heart disease of native coronary artery without angina pectoris; I10 Essential (primary) hypertension; Z86.16 Personal history of COVID-19
CPT/HCPCS: 99285; 96374; 70450; 96361; 84484; 80048; 85025; 81003; 36415; 93005; J7030; J2919

== ENCOUNTER 2024-02-02 01:26 | Emergency (ER) | payer OTHER, MEDICARE ==
[~2024-02-02] VITALS: Ht 170.2 cm; Wt 88.0 kg
[~2024-02-02 01:26] MED LIST changes: +MECL-302 PO
[2024-02-02 01:59] LABS: BASOPHILS # (AUTO) 0.08 K/uL (0.00-0.20); BASOPHILS % (AUTO) 0.4 % (0.0-5.0); EOSINOPHILS # (AUTO) 0.09 K/uL (0.00-0.70); EOSINOPHILS % (AUTO) 0.5 % (0.0-8.0); HEMATOCRIT 36.6 % (42-54); IMMATURE GRANULOCYTE ABSOLUTE 0.14 K/uL (0-1); LYMPHOCYTES # (AUTO) 2.5 K/uL (1.0-4.8); MEAN CORPUSCULAR HEMOGLOBIN 28.9 pg (27.0-33.0); MEAN CORPUSCULAR VOLUME 82.6 fL (79-99); MONOCYTES # (AUTO) 1.3 K/uL (0.1-1.0); MONOCYTES % (AUTO) 6.9 % (3.0-13.0); NEUTROPHILS # (AUTO) 14.7 K/uL (1.8-7.7); NEUTROPHILS % (AUTO) 78.5 % (40.0-77.0); PLATELET COUNT (AUTO) 233 K/uL (130-400); RED BLOOD CELL COUNT(AUTO) 4.43 MIL/uL (4.50-6.20); RED CELL DISTRIBUTION WIDTH 13.1 % (11.0-15.5); WHITE BLOOD COUNT (AUTO) 18.8 K/uL (4.8-10.8)
[2024-02-02 02:17] LABS: POTASSIUM 3.5 mmol/L (3.5-5.1)
[2024-02-02] MEDS: CEFTRIAXONE 1G VIAL IVPB ONE (02:17)
[2024-02-02 02:18] LABS: INR <= 0.93 (0.85-1.15); PROTHROMBIN TIME 10.3 SEC (9.6-11.6)
[2024-02-02 02:19] LABS: PARTIAL THROMBOPLASTIN TIME 23.5 SEC (26.3-35.5)
[2024-02-02] MEDS ORDERED: METR-172 PO (05:09)
[2024-02-02 05:22] VITALS: BP 141/76; PULSE 62; RESP 18; O2SAT 98
[2024-02-02] MEDS ORDERED: CEFTRIAXONE 1G VIAL IVPB ONE (05:30)
== END 2024-02-02 05:24 | disposition home or self-care (01) ==
LOC: EDH 01:26
DX: K62.5 Hemorrhage of anus and rectum (principal); K52.9 Noninfective gastroenteritis and colitis, unspecified; I25.10 Atherosclerotic heart disease of native coronary artery without angina pectoris; I10 Essential (primary) hypertension; F17.200 Nicotine dependence, unspecified, uncomplicated; Z79.82 Long term (current) use of aspirin; Z79.899 Other long term (current) drug therapy; Z86.16 Personal history of COVID-19; Z88.8 Allergy status to other drugs, medicaments and biological substances; Z95.5 Presence of coronary angioplasty implant and graft
CPT/HCPCS: 99285; 74176; 96365; 80048; 85025; 85610; 85730; 86850; 86900; 86901; 83605; 36415; J0696

== ENCOUNTER 2024-09-06 16:44 | Emergency (ER) | payer MEDICARE, OTHER ==
[~2024-09-06] VITALS: Ht 175.3 cm; Wt 90.7 kg
[~2024-09-06 16:44] MED LIST changes: +METR-172 PO
--- NOTE | 2024-09-06 18:10 | ERN ---
ED Note History of Present Illness Stated Complaint: LEFT 5TH TOE PAIN Chief Complaint: Toe Pain/Injury Time Seen by MD: 17:22 Dictation: 63-year-old male presents to the ED for evaluation of left toe pain onset 3 days ago. Patient reports dislocation, toe injury, but denies any other associated symptoms at this time. Patient mentioned he was running when his dog accidentally tripped him and caused him to stab his left foot on a post. Allergies: Coded Allergies: Oqlpbsf-Plk-Qbm Reductase Inhibitor (Unverified Allergy, Intermediate, ANAPHYLAXIS, 03/24/21) No Known Drug Allergies (Verified Allergy, Unknown, 03/24/21) Home Meds Active Scripts Naproxen (Naproxen) 250 Mg Tablet, 250 MG PO BID for 5 Days, #10 TAB Prov:OLENA DENNIS MD 09/06/24 Metronidazole (Metronidazole) 500 Mg Tablet, 500 MG PO BID for 7 Days, #14 TAB Prov:TANIA GOODE MD 02/02/24 Meclizine HCl (Meclizine HCl) 25 Mg Tablet, 25 MG PO TID for vertigo, #30 TAB 0 Refills Prov:NIVIA VENCES COMMERCIAL SINGER 01/30/24 Memantine HCl (Namenda 5 mg Tab) 5 Mg Tablet, 10 MG PO BID, #30 TAB Prov:AMY,LEO G COMMERCIAL SINGER 09/18/23 Donepezil HCl (Aricept 5Mg Tab) 5 Mg Tab, 10 MG PO DAILY, #30 TAB Prov:AMY,LEO G COMMERCIAL SINGER 09/18/23 Metoprolol Succinate (Toprol Xl) 25 Mg Tab.er.24h, 75 MG PO DAILY for 30 Days, #30 TAB 0 Refills Prov:AMY,LEO G COMMERCIAL SINGER 09/18/23 Losartan Potassium (Cozaar) 50 Mg Tablet, 100 MG PO DAILY for 30 Days, #30 TAB 0 Refills Prov:AMY,LEO G COMMERCIAL SINGER 09/18/23 Ezetimibe (Zetia) 10 Mg Tablet, 10 MG PO DAILY for 30 Days, #30 TAB 0 Refills Prov:AMY,LEO G COMMERCIAL SINGER 09/18/23 Amlodipine Besylate (Norvasc 5Mg Tab) 5 Mg Tablet, 10 MG PO DAILY for 30 Days, #30 TAB 0 Refills Prov:AMY,LEO G COMMERCIAL SINGER 09/18/23 Reported Medications Aspirin (Aspir 81) 81 Mg Tablet.dr, 81 MG PO DAILY, TAB 09/08/18 Past Medical History Past Medical History: CAD, Heart Disease, Hypertension, Other Additional Past Medical Hx: ALZHEMIER Surgical History: Other Surgical History Other: RT KNEE, LT SHOULDER , CARDIAC STENTS Social History: Smokers, Lives with family Review of System Dictation Constitutional: Negative for fever,chills, and weight loss Eyes: Negative for injury, pain,redness, and discharge ENT: Negative for injury,pain or swelling Cardiovascular: Negative for chest pain, palpitations, and edema Respiratory: Negative for shortness of breath, cough, and wheezing, Abdomen/GI: Negative for abdominal pain, nausea, vomiting, diarrhea, and constipation Back: Negative for injury and pain : Negative for injury, bleeding and discharge MS/Extremity: Positive for left toe pain, injury, dislocation Skin: Negative for rash, and discoloration Neuro: Negative for headache, weakness, numbness, tingling, and seizure Psych: Negative for suicide ideation, homicidal ideation, and hallucinations Initial Vital Sign VS Vital Signs Date Time Temp Pulse Resp B/P (MAP) Pulse Ox O2 Delivery O2 Flow Rate FiO2 09/06/24 16:45 97.9 71 16 190/109 98 Room Air 0 09/06/24 18:46 21 Physical Exam Dictation General: awake, alert, NAD Head/Face: Normocephalic, atraumatic Eyes: PERRL, EOMI, vision at baseline ENT: oral cavity clear, TMs clear, no signs of infection Neck: Trachea midline, supple, no nuchal rigidity Cardiovascular: RRR, normal S1/S2, No MRGs, no JVD Respiratory: CTAB, no respiratory distress, No rales or wheezes Abdomen: Soft, non-tender, non-distended, normal bowel sounds, no guarding or rebound. Skin: Warm, dry, normal turgor, no rash MS/Extremity: Pulses equal, no cyanosis, neurovascular intact, FROM, ecchymosis to left lateral metatarsals Neuro: COAx4, GCS 15, strength 5/5, CN 2-12 intact, normal cerebellar exam, normal gait, Psych: Normal behavior, mood, and affect normal Results (Laboratory/Radiology) X-RAY Comment: X-ray independently visualized and interpreted by me. Fracture to 4th left proximal phalanx REASON: PAIN ORDERING PHYSICIAN: OLENA DENNIS MD PROCEDURE: TOES LT - TOE(S) 2+VWS LT TOE(S) 2+VWS LT HISTORY: Pain COMPARISON: None TECHNIQUE: 3 images of left fourth and fifth toes were obtained. FINDINGS: Fracture displacement is seen involving the base of the fourth proximal phalanx. No dislocation is seen. Degenerative changes are seen. IMPRESSION: 1. Findings as described above. DICTATED BY: YANNA ALEMAN MD DATE: 09/06/241939 ED Course ED Course Orders Procedure Category Date Status Time Toe(S) 2+Vws Lt RAD 09/06/24 Resulted 16:49 Foot Comp 3+Vws Lt RAD 09/06/24 Resulted 16:49 *Nursing CPOE 09/06/24 Transmitted Communication: 18:23 Vital Signs Date Time Temp Pulse Resp B/P (MAP) Pulse Ox O2 Delivery O2 Flow Rate FiO2 09/06/24 18:46 97.9 61 16 161/84 100 Room Air* 0 21 09/06/24 16:45 97.9 71 16 190/109 98 Room Air 0 Medical Decision Making MDM MDM: Differential diagnosis: Left toe pain, fracture, left toe injury Previous outside records reviewed: Old ER visits. Need for hospitalization: Patient does not meet criteria for hospitalization. Need for emergency major/minor surgery: No Patient's prior external medical records from other ER visits were reviewed by me as indicated. Prior testing and results from previous visits were reviewed. Prior tests were taken into account with medical decision making and resource utilization, independent historian/historians were used to obtain complete medical history. I independently interpreted the test that were performed, results were reviewed by me and considered findings on radiology if ordered. Medical management and examination interpretation discussions were had by me with other qualified healthcare professionals as indicated for the patient's care. DX & DISP Disposition: Discharge Departure Impression: Primary Impression: Toe fracture, left Condition: Stable Scripts Naproxen (Naproxen) 250 Mg Tablet 250 MG PO BID for 5 Days, #10 TAB Prov: OLENA DENNIS MD 09/06/24 Referrals: XAVIER COPE MD (PCP) I have reviewed, & agreed with my scribe's, documentation. (Entered by [place], acting as a scribe for Dr. Dennis) I personally scribed for OLENA DENNIS MD ([email or web address]) on 09/06/24 at 18:10. Electronically submitted by [place] ([email or web address]). I personally scribed for OLENA DENNIS MD ([email or web address]) on 09/06/24 at 18:12. Electronically submitted by [place] ([email or web address]). OLENA DENNIS MD Sep 06, 2024 18:10
[2024-09-06] MEDS ORDERED: NAPR-1196 PO (18:33)
[2024-09-06 18:46] VITALS: BP 161/84; PULSE 61; RESP 16; TEMP 97.8; O2SAT 100
--- NOTE | 2024-09-06 18:54 | NUR ---
LLE POSTERIOR SHORT SPLINT PALCED, PT TOLERATED WELL. REFUSED CRUTCHES
--- NOTE | 2024-09-06 19:43 | HMCIMG ---
FOOT COMP 3+VWS LT HISTORY: Pain COMPARISON: None TECHNIQUE: 3 images of left foot were obtained. FINDINGS: Fracture displacement are seen involving the base of the fourth proximal phalanx. Mild degenerative changes are seen. IMPRESSION: 1. Findings as described above.
--- NOTE | 2024-09-06 19:43 | HMCIMG ---
TOE(S) 2+VWS LT HISTORY: Pain COMPARISON: None TECHNIQUE: 3 images of left fourth and fifth toes were obtained. FINDINGS: Fracture displacement is seen involving the base of the fourth proximal phalanx. No dislocation is seen. Degenerative changes are seen. IMPRESSION: 1. Findings as described above.
== END 2024-09-06 19:07 | disposition home or self-care (01) ==
LOC: EDH 16:44
DX: S92.512A Displaced fracture of proximal phalanx of left lesser toe(s), initial encounter for closed fracture (principal); I10 Essential (primary) hypertension; F17.200 Nicotine dependence, unspecified, uncomplicated; I11.9 Hypertensive heart disease without heart failure; I25.10 Atherosclerotic heart disease of native coronary artery without angina pectoris; Z79.82 Long term (current) use of aspirin; Z79.899 Other long term (current) drug therapy; Z88.8 Allergy status to other drugs, medicaments and biological substances; Z95.5 Presence of coronary angioplasty implant and graft; Z98.890 Other specified postprocedural states; W01.0XXA Fall on same level from slipping, tripping and stumbling without subsequent striking against object, initial encounter; Y93.02 Activity, running; Y92.89 Other specified places as the place of occurrence of the external cause; Y99.8 Other external cause status
CPT/HCPCS: 73630; 73660; 99284

== ENCOUNTER 2025-08-29 16:12 | Emergency (ER) | payer MEDICARE, OTHER ==
[~2025-08-29] VITALS: Ht 175.3 cm; Wt 92.5 kg
[~2025-08-29 16:12] MED LIST changes: +NAPR-1196 PO
[2025-08-29 16:14] VITALS: BP 137/82; PULSE 116; RESP 20; TEMP 100
[2025-08-29] MEDS: 0.9%NACL 1000ML 1,000 ML IV STA (16:26)
--- NOTE | 2025-08-29 16:52 | EKG ---
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
--- NOTE | 2025-08-29 16:53 | ERN ---
ED Note History of Present Illness Stated Complaint: FEVER, COUGH, CONGESTION Chief Complaint: Flu Symptoms Time Seen by MD: 16:19 Time Seen by Midlevel: 16:22 Dictation: 64-year-old male coming in with complaints of hiccups. Patient states and family states that he was not diagnosed with the flu earlier today by PCP however decided to come and bring him to the emergency room due to having the hiccups. Denies having any fever, chest pain, chest discomfort, nausea, vomiting or diarrhea. Allergies: Coded Allergies: Vjnzvqp-Bwz-Cno Reductase Inhibitor (Unverified Allergy, Intermediate, ANAPHYLAXIS, 03/24/21) No Known Drug Allergies (Verified Allergy, Unknown, 03/24/21) Home Meds Active Scripts Naproxen (Naproxen) 250 Mg Tablet, 250 MG PO BID for 5 Days, #10 TAB Prov:OLENA DENNIS MD 09/06/24 Metronidazole (Metronidazole) 500 Mg Tablet, 500 MG PO BID for 7 Days, #14 TAB Prov:TANIA GOODE MD 02/02/24 Meclizine HCl (Meclizine HCl) 25 Mg Tablet, 25 MG PO TID for vertigo, #30 TAB 0 Refills Prov:NIVIA VENCES REGISTERED PRIVATE DUTY NURSE 01/30/24 Memantine HCl (Namenda 5 mg Tab) 5 Mg Tablet, 10 MG PO BID, #30 TAB Prov:AMYWILMARLEO G REGISTERED PRIVATE DUTY NURSE 09/18/23 Donepezil HCl (Aricept 5Mg Tab) 5 Mg Tab, 10 MG PO DAILY, #30 TAB Prov:AMY,LEO G REGISTERED PRIVATE DUTY NURSE 09/18/23 Metoprolol Succinate (Toprol Xl) 25 Mg Tab.er.24h, 75 MG PO DAILY for 30 Days, #30 TAB 0 Refills Prov:AMY,LEO G REGISTERED PRIVATE DUTY NURSE 09/18/23 Losartan Potassium (Cozaar) 50 Mg Tablet, 100 MG PO DAILY for 30 Days, #30 TAB 0 Refills Prov:AMY,LEO G REGISTERED PRIVATE DUTY NURSE 09/18/23 Ezetimibe (Zetia) 10 Mg Tablet, 10 MG PO DAILY for 30 Days, #30 TAB 0 Refills Prov:AMY,LEO G REGISTERED PRIVATE DUTY NURSE 09/18/23 Amlodipine Besylate (Norvasc 5Mg Tab) 5 Mg Tablet, 10 MG PO DAILY for 30 Days, #30 TAB 0 Refills Prov:LEO REYES REGISTERED PRIVATE DUTY NURSE 09/18/23 Reported Medications Aspirin (Aspir 81) 81 Mg Tablet.dr, 81 MG PO DAILY, TAB 09/08/18 Past Medical History Past Medical History: CAD, Heart Disease, Hypertension, Other Additional Past Medical Hx: ALZHEMIER Surgical History: Other Surgical History Other: RT KNEE, LT SHOULDER , CARDIAC STENTS Social History: Smokers, Lives with family Review of System Dictation Constitutional: Negative for fever,chills, and weight loss Eyes: Negative for injury, pain,redness, and discharge ENT: Negative for injury,pain or swelling Cardiovascular: Negative for chest pain, palpitations, and edema Respiratory: Negative for shortness of breath, cough, and wheezing, Abdomen/GI: Negative for abdominal pain, nausea, vomiting, diarrhea, and constipation Back: Negative for injury and pain : Negative for injury, bleeding and discharge MS/Extremity: Negative for injury and deformity Skin: Negative for rash, and discoloration Neuro: Negative for headache, weakness, numbness, tingling, and seizure Psych: Negative for suicide ideation, homicidal ideation, and hallucinations Review of Systems: was completed Initial Vital Sign VS Vital Signs Date Time Temp Pulse Resp B/P (MAP) Pulse Ox O2 Delivery O2 Flow Rate FiO2 08/29/25 16:14 100.0 116 20 137/82 95 Room Air 0 Physical Exam Dictation General: awake, alert, NAD Head/Face: Normocephalic, atraumatic Eyes: PERRL, EOMI, vision at baseline ENT: oral cavity clear, TMs clear, no signs of infection Neck: Trachea midline, supple, no nuchal rigidity Cardiovascular: RRR, normal S1/S2, No MRGs, no JVD Respiratory: CTAB, no respiratory distress, No rales or wheezes Abdomen: Soft, non-tender, non-distended, normal bowel sounds, no guarding or rebound. Skin: Warm, dry, normal turgor, no rash MS/Extremity: Pulses equal, no cyanosis, neurovascular intact, FROM Neuro: COAx4, GCS 15, strength 5/5, CN 2-12 intact, normal cerebellar exam, normal gait, Psych: Normal behavior, mood, and affect normal Results (Laboratory/Radiology) Laboratory/Radiology Laboratory Tests Test 08/29/25 16:45 08/29/25 17:15 08/29/25 18:22 White Blood Count 11.7 K/uL (4.8-10.8) H Red Blood Count 4.86 MIL/uL (4.50-6.20) Hemoglobin 13.5 g/dL (14.0-18.0) L Hematocrit 40.9 % (42-54) L Mean Corpuscular Volume 84.2 fL (79-99) Mean Corpuscular Hemoglobin 27.8 pg (27.0-33.0) Mean Corpuscular Hemoglobin Concent 33.0 g/dL (32.0-36.0) Red Cell Distribution Width 14.3 % (11.0-15.5) Platelet Count 205 K/uL (130-400) Mean Platelet Volume 10.2 fL (7.5-10.5) Immature Granulocyte % (Auto) 0.4 % (0-1) Neutrophils (%) (Auto) 90.5 % (40.0-77.0) H Lymphocytes (%) (Auto) 3.8 % (21.0-51.0) L Monocytes (%) (Auto) 4.7 % (3.0-13.0) Eosinophils (%) (Auto) 0.1 % (0.0-8.0) Basophils (%) (Auto) 0.5 % (0.0-5.0) Neutrophils # (Auto) 10.6 K/uL (1.8-7.7) H Lymphocytes # (Auto) 0.4 K/uL (1.0-4.8) L Monocytes # (Auto) 0.6 K/uL (0.1-1.0) Eosinophils # (Auto) 0.01 K/uL (0.00-0.70) Basophils # (Auto) 0.06 K/uL (0.00-0.20) Absolute Immature Granulocyte (auto 0.05 K/uL (0-1) Segmented Neutrophils % 69 % (40-70) Band Neutrophils % 17 % (0-2) H Lymphocytes % (Manual) 7 % (22-44) L Monocytes % (Manual) 5 % (2-9) Basophils % (Manual) 2 % (0-2) Nucleated Red Blood Cells 0.0 % (0.0-0.19) Differential Comment MANUAL DIFFERENTIAL White Cell Morphology Comment CONSISTENT W/DIFF Platelet Morphology Comment ADEQUATE Red Blood Cell Morphology ANISO 1+ Sodium Level 136 mmol/L (136-145) Potassium Level 3.5 mmol/L (3.5-5.1) Chloride Level 102 mmol/L (101-111) Carbon Dioxide Level 28 mmol/L (21-32) Blood Urea Nitrogen 19 mg/dL (7-18) H Creatinine 1.2 mg/dL (0.5-1.3) Glomerular Filtration Rate Calc 67 mL/min (>90) Random Glucose 205 mg/dL (70-105) H Total Calcium 7.8 mg/dL (8.5-10.1) L Troponin I High Sensitivity 13 ng/L (4-75) Influenza Type A Antigen Positive For Type A Influenza Type B Antigen Negative For Type B SARS-CoV-2 Antigen (Rapid) PRESUMPTIVE NEGATIVE Group A Streptococcus Rapid negative (NEGATIVE) Urine Color LIGHT-YELLOW (YELLOW) Urine Appearance CLEAR (CLEAR) Urine pH 5.5 (5.0-8.0) Urine Specific [place] 1.025 (1.001-1.031) Urine Protein 20 mg/dL (NEGATIVE) H Urine Glucose (UA) 70 mg/dL (NEGATIVE) H Urine Ketones NEGATIVE mg/dL (NEGATIVE) Urine Occult Blood +- (TRACE) (NEGATIVE) H Urine Nitrate NEGATIVE (NEGATIVE) Urine Bilirubin NEGATIVE mg/dL (NEGATIVE) Urine Urobilinogen 0.2 mg/dL (0.2-1.0) Urine Leukocyte Esterase NEGATIVE [place]/uL Urine RBC 0-1 /HPF (0-1) Urine WBC 0-1 /HPF (0-1) Urine Squamous Epithelial Cells RARE /HPF (0-2) Urine Bacteria RARE /HPF (None Seen) Labs Reviewed?: Yes EKG Comment: EKGs was done at 1645. Normal sinus rhythm at a rate of 99 beats per minute. No STEMI interpreted by ER MD. X-RAY Comment: [place] [id number] [id number] IMAGING REPORT Signed PATIENT: LUCAS SHARMA MR#: [id number] : 1960 SEX: M AGE: 64 LOCATION: ED ORDER [id number] STATUS: REG ER REPORT#: [id number] SERVICE [id number] REASON: COUGH ORDERING PHYSICIAN: VIJAY TRACY CNP PROCEDURE: CXR1VW - CHEST 1VW EXAM: CR Chest, 1 View. CLINICAL HISTORY: COUGH COMPARISON: None provided. FINDINGS: LUNGS: There is no mass, infiltrate, or acute pulmonary abnormality. PLEURAL SPACES: No evidence of pleural effusion or pneumothorax. MEDIASTINUM: Cardiac size and mediastinal contours within normal limits. BONES: No aggressive appearing osseous lesion seen. IMPRESSION: No acute cardiopulmonary pathology is evident. /[place] DICTATED BY: HANK VILLARREAL Jr., MD DATE: 08/29/251899 ELECTRONICALLY SIGNED BY: HANK VILLARREAL Jr., MD DATE: 08/29/251899 ED Course ED Course Orders Procedure Category Date Status Time Rapid (Group A Strep) LAB 08/29/25 Complete 16:15 Influenza Type A & B, LAB 08/29/25 Complete Rapid 16:15 Covid19 (Sars Antigen LAB 08/29/25 Complete Rapid) 16:15 Cbc With Differential LAB 08/29/25 Complete 16:26 Basic Metabolic Panel LAB 08/29/25 Complete 16:26 Troponin I High LAB 08/29/25 Complete Sensitivity 16:26 12 Lead Ekg Tracing- EKG 08/29/25 Complete Technical 16:26 Urinalysis Profile LAB 08/29/25 Complete 16:26 Chest 1vw RAD 08/29/25 Resulted 16:26 0.9%Nacl 1000ml (Ns PHA 08/29/25 Complete 1000ml) 16:26 Manual Differential LAB 08/29/25 Complete 16:45 Current Medications Medications (Trade) Dose Ordered Sig/Yakelin Route PRN Reason Start Time Stop Time Status Last Admin Dose Admin Sodium Chloride 1,000 ml @ 1,000 mls/hr Q1H STAT IV 08/29/25 16:26 08/29/25 17:25 DC Vital Signs Date Time Temp Pulse Resp B/P (MAP) Pulse Ox O2 Delivery O2 Flow Rate FiO2 08/29/25 16:14 100.0 116 20 137/82 95 Room Air 0 Medical Decision Making MDM MDM: 64-year-old male with a history of Alzheimer's, presents to the ED for further evaluation after being seen by PCP and diagnosed with a influenza A. Per spouse patient had a transient hallucination while he was at the PCP. He received Advil for fever and the fever improved. In the ED patient is awake alert and oriented to baseline. No current hallucinations, no confusion beyond baseline Alzheimer's and denies shortness a breath or chest pain. ED course no fever no tachycardia no tachypnea or hypoxia. Hemodynamically stable. Patient received fluids in the ED with the improvement of her parents and subjective we will being reported by patient and spouse. Lab work shows no leukocytosis, no anemia, no thrombocytopenia. Chemistry shows no electrolyte abnormality. Chest x-ray showed no infiltrates. UA shows no evidence of urinary tract infection. And swabs tested positive for influenza A. Presentation consistent with the influenza with the times it altered mentation likely related to fever dehydration. At this time patient is stable, hydrated and baseline mentation. No evidence of pneumonia, secondary infection, sepsis, electrolyte abnormality and other emergent etiology of her fusion. Giving the Tamiflu that is already been initiated no further anterior therapy needed. Patient will be discharged home as he is able to tolerate p.o. remains clinically stable. Spouse educated on when to return patient back to the emergency room like worsen infusion, fevers, nausea and vomiting unable to tolerate p.o.. Spouse verbalized understanding, answered all questions. Differential diagnosis: Dehydration, electrolyte abnormality, urinary tract infection, COVID, flu, strep, viral syndrome Rationale: Tests considered and ordered secondary to shared decision making include: Previous outside records reviewed: Old ER visits. Risk of complication and/or morbidity or mortality of patient management: None Medications-Per medication reconciliation Need for hospitalization: Patient does not meet criteria for hospitalization. Need for emergency major/minor surgery: No There are no social concerns with this patient. Prescription drug management Prescriptions will include symptomatic care Patient's prior external medical records from other ER visits were reviewed by me as indicated. Prior testing and results from previous visits were reviewed. Prior tests were taken into account with medical decision making and resource utilization, independent historian/historians were used to obtain complete medical history. I independently interpreted the test that were performed, results were reviewed by me and considered findings on radiology if ordered. Medical management and examination interpretation discussions were had by me with other qualified healthcare professionals as indicated for the patient's care. DX & DISP Disposition: Discharge Departure Impression: Primary Impression: Influenza Condition: Stable Additional Instructions: Return patient to the emergency room if you develop any worsening symptoms like worse confusion, nausea and vomiting, fever that will not go down with Tylenol and unable to tolerate any fluid intake. Otherwise follow up with your primary in 2-3 days. Referrals: XAVIER COPE MD (PCP) Time of Disposition: 18:43 I have reviewed the case, and I agree with, Diagnosis and Plan VIJAY TRACY [facility] Aug 29, 2025 16:53
[2025-08-29 17:08] LABS: IMMATURE GRANULOCYTE ABSOLUTE 0.05 K/uL (0-1); NUCLEATED RED BLOOD CELLS 0.0 % (0.0-0.19); PLATELET COUNT (AUTO) 205 K/uL (130-400); RED BLOOD CELL COUNT(AUTO) 4.86 MIL/uL (4.50-6.20); RED CELL DISTRIBUTION WIDTH 14.3 % (11.0-15.5); WHITE BLOOD COUNT (AUTO) 11.7 K/uL (4.8-10.8)
[2025-08-29 17:17] LABS: CREATININE 1.2 mg/dL (0.5-1.3); GLOMERULAR FILTR. RATE CALC 67.0 mL/min (>90); GLUCOSE,RANDOM 205.0 mg/dL (70-105); SODIUM SERUM 136.0 mmol/L (136-145); UREA NITROGEN, BLOOD 19.0 mg/dL (7-18)
[2025-08-29 17:31] LABS: RAPID GROUP A STREP negative (NEGATIVE)
[2025-08-29 17:39] LABS: INFLUENZA TYPE B Negative For Type B (NEGATIVE)
[2025-08-29 17:40] LABS: COVID19 (SARS ANTIGEN RAPID) PRESUMPTIVE NEGATIVE (NEGATIVE)
[2025-08-29 17:41] LABS: INFLUENZA TYPE A Positive For Type A (NEGATIVE)
--- NOTE | 2025-08-29 18:00 | HMCIMG ---
EXAM: CR Chest, 1 View. CLINICAL HISTORY: COUGH COMPARISON: None provided. FINDINGS: LUNGS: There is no mass, infiltrate, or acute pulmonary abnormality. PLEURAL SPACES: No evidence of pleural effusion or pneumothorax. MEDIASTINUM: Cardiac size and mediastinal contours within normal limits. BONES: No aggressive appearing osseous lesion seen. IMPRESSION: No acute cardiopulmonary pathology is evident. /[place]
[2025-08-29 18:07] LABS: BAND NEUTROPHILS % (MANUAL) 17 % (0-2); BASOPHILS % (MANUAL) 2 % (0-2); LYMPHOCYTES % (MANUAL) 7 % (22-44); MAN.DIFF COMMENT-IMPRESSION MANUAL DIFFERENTIAL; MONOCYTES % (MANUAL) 5 % (2-9); PLATELET MORPHOLOGY COMMENT ADEQUATE; SEGMENTED NEUTROPHILS % 69 % (40-70); WBC MORPHOLOGY CONSISTENT W/DIFF
[2025-08-29 18:34] LABS: ADD UA MICROSCOPIC YES; APPEARANCE,URINE CLEAR (CLEAR); GLUCOSE, URINE (UA) 70 mg/dL (NEGATIVE); LEUKOCYTE ESTERASE ,URINE NEGATIVE Leu/uL (NEGATIVE); NITRATE,URINE NEGATIVE (NEGATIVE); OCCULT BLOOD,URINE +- (TRACE) (NEGATIVE)
[2025-08-29 18:36] LABS: SQUAMOUS EPITHELIAL CELL,UR RARE /HPF (0-2)
== END 2025-08-29 19:03 | disposition home or self-care (01) ==
LOC: EDH 16:12
DX: J11.1 Influenza due to unidentified influenza virus with other respiratory manifestations (principal); F17.200 Nicotine dependence, unspecified, uncomplicated; Z79.82 Long term (current) use of aspirin; Z79.899 Other long term (current) drug therapy; Z88.8 Allergy status to other drugs, medicaments and biological substances; Z95.5 Presence of coronary angioplasty implant and graft; Z20.822 Contact with and (suspected) exposure to COVID-19
CPT/HCPCS: 99285; 96360; 71045; 87426; 84484; 80048; 85025; 87880; 87804 ×2; 81001; 36415; 93005; J7030